=== PATIENT | female | born 1970 | race Caucasian/White ===

== ENCOUNTER 2021-06-23 17:27 | Outpatient (REF) | payer BC, SELFPAY ==
[2021-06-23 18:59] LABS: BUN 11 mg/dL (7-18); CREATININE 0.7 mg/dL (0.55-1.02); Chloride 106 mmol/L (98-107); Glucose 90 mg/dL (74-106); Potassium 3.8 mmol/L (3.5-5.1); Sodium 140 mmol/L (136-145)
== END 2021-06-23 17:28 | disposition home or self-care (01) ==
LOC: NCHCN 17:27
PROVIDERS: Visit Provider Nurse Practitioner Family
DX: I10 Essential (primary) hypertension (principal)
CPT/HCPCS: 80048

== ENCOUNTER 2022-07-07 14:48 | Outpatient (REF) | payer BC, SELFPAY ==
[2022-07-07 16:43] LABS: ALT 27 U/L (14-59); AST 29 U/L (15-37); Albumin 3.9 g/dL (3.4-5.0); Alkaline Phosphatase 53 U/L (46-116); Anion Gap 7.9 mmol/L (3-11); BUN 13 mg/dL (7-18); Bilirubin, Total 0.7 mg/dL (0.2-1.0); CO2 27.1 mmol/L (21.0-32.0); CREATININE 0.8 mg/dL (0.55-1.02); Calcium 8.7 mg/dL (8.5-10.1); Chloride 104 mmol/L (98-107); Glucose 91 mg/dL (74-106); Potassium 3.4 mmol/L (3.5-5.1); Sodium 139 mmol/L (136-145); Total Protein 7.9 g/dL (6.4-8.2)
[2022-07-07 16:46] LABS: Vitamin D 25 Total 9.9 ng/mL (30-100)
== END 2022-07-07 14:49 | disposition home or self-care (01) ==
LOC: NCHCN 14:48
PROVIDERS: Visit Provider Nurse Practitioner Family
DX: I10 Essential (primary) hypertension (principal); E55.9 Vitamin D deficiency, unspecified
CPT/HCPCS: 80053; 82306

== ENCOUNTER 2023-06-22 13:17 | Outpatient (REF) | payer BC, SELFPAY ==
[2023-06-22 18:57] LABS: Abs Immature Grans 0.02 10^3/uL (0.0-0.06); Absolute Basophil Count 0.07 10^3/uL (0.0-0.2); Absolute Eosinophil Count 0.24 10^3/uL (0.0-0.7); Absolute Lymphocyte Count 1.62 10^3/uL (1.2-3.4); Absolute Monocyte Count 0.81 10^3/uL (0.1-0.8); Absolute Neutrophil Count 5.61 10^3/uL (1.2-6.7); Basophils % 0.8; Eosinophils % 2.9; HGB 15.2 g/dL (11.2-15.7); Immature Grans % 0.2; Lymphocytes % 19.4; MCH 25.2 pg (27.0-33.0); MCHC 32.3 % (32.0-36.0); MCV 78 fL (80-95); MPV 11.8 fL (8.0-11.0); Monocytes % 9.7; Platelet Count 305 10^3/uL (130-400); RBC 6.04 10^6/uL (3.93-5.22); RDW 19.5 % (11.7-14.6); RDW-SD 52.1 fL; WBC 8.37 10^3/uL (4.4-10.8)
[2023-06-22 19:05] LABS: Anion Gap 8.7 mmol/L (3-11); BUN 15 mg/dL (7-18); CO2 27.3 mmol/L (21.0-32.0); CREATININE 0.7 mg/dL (0.55-1.02); Calcium 9.6 mg/dL (8.5-10.1); Calculated LDL 93 mg/dL (<100); Chloride 101 mmol/L (98-107); Cholesterol 168 mg/dL (<200); Estimated GFR 103.35 (mL/min/1.73m2); Glucose 127 mg/dL (74-106); HDL Cholesterol 58 mg/dL (40-60); Sodium 137 mmol/L (136-145); Triglyceride 89 mg/dL (<150)
[2023-06-22 19:28] LABS: Potassium 2.9 mmol/L (3.5-5.1)
[2023-06-22 20:38] LABS: Acanthocytes 1+; Diff Comment RBC Morph Reviewed; Microcytosis 1+
== END 2023-06-22 13:18 | disposition home or self-care (01) ==
LOC: NCHCN 13:17
PROVIDERS: Visit Provider Nurse Practitioner Family
DX: Z00.00 Encounter for general adult medical examination without abnormal findings (principal); I10 Essential (primary) hypertension; E55.9 Vitamin D deficiency, unspecified
CPT/HCPCS: 80048; 80061; 85025

== ENCOUNTER 2023-12-27 06:39 | Emergency (ER) | payer BC, SELFPAY ==
[2023-12-27] VITALS (30 sets, daily range): BP systolic 83–211; BP diastolic 61–104; PULSE 71–115; RESP 8–26; TEMP 37.1; O2SAT 98
[2023-12-27 06:59] LABS: Lactate 1.2 mmol/L (0.6-1.4)
[2023-12-27 07:02] LABS: Abs Immature Grans 0.03 10^3/uL (0.0-0.06); Absolute Basophil Count 0.05 10^3/uL (0.0-0.2); Absolute Eosinophil Count 0.15 10^3/uL (0.0-0.7); Absolute Monocyte Count 0.55 10^3/uL (0.1-0.8); Absolute Neutrophil Count 5.03 10^3/uL (1.2-6.7); Basophils % 0.7; HCT 43.6 % (36.0-46.0); HGB 14.9 g/dL (11.2-15.7); Immature Grans % 0.4; Lymphocytes % 21.6; MCH 29.5 pg (27.0-33.0); MCHC 34.2 % (32.0-36.0); MCV 86 fL (80-95); MPV 10.9 fL (8.0-11.0); Monocytes % 7.4; Neutrophils % 67.9; Platelet Count 289 10^3/uL (130-400); RBC 5.05 10^6/uL (3.93-5.22); RDW 14.3 % (11.7-14.6); RDW-SD 45.4 fL; WBC 7.41 10^3/uL (4.4-10.8)
[2023-12-27 07:16] LABS: PTT Activated 25.9 sec (23.6-32.8); Prothrombin Time 10.1 sec (9.1-11.1)
[2023-12-27 07:22] LABS: ALT 27 U/L (14-59); AST 16 U/L (15-37); Albumin 3.7 g/dL (3.4-5.0); Alkaline Phosphatase 69 U/L (46-116); Anion Gap 11.5 mmol/L (3-11); BUN 12 mg/dL (7-18); Bilirubin, Total 0.7 mg/dL (0.2-1.0); CO2 29.5 mmol/L (21.0-32.0); CREATININE 0.8 mg/dL (0.55-1.02); Calcium 8.9 mg/dL (8.5-10.1); Chloride 104 mmol/L (98-107); Estimated GFR 88.05 (mL/min/1.73m2); Glucose 107 mg/dL (74-106); HCG Quant, Pregnancy 1 mIU/mL (1-3); Sodium 145 mmol/L (136-145); Total Protein 7.6 g/dL (6.4-8.2)
--- NOTE | 2023-12-27 07:23 | ED.GENADUL_ITS ---
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 This is concerning for cancer. Please follow-up at 9 AM at your scheduled appointment with obstetrics gynecology for further discussion and management. Please drink plenty fluids and stay well-hydrated. Take an iron supplement to help keep your blood at an acceptable level. You can take 600 mg of Motrin every 6-8 hours as needed for pain or cramping. If you notice any worsening of your symptoms, or any new symptoms such as vomiting, diarrhea, fever, chills, shortness of breath, chest pain, numbness, weakness, or fainting , please return immediately to the emergency department for reevaluation. Please follow up with your primary care provider as soon as possible for reassessment and reevaluation. As always, it was a pleasure participating in your medical care today. Referrals: Jaycee Santos MD [ [facility] STAFF PHYSICIAN] - [facility] General Date/Time Provider Initiated Documentation: 12/27/23 06:44 . [facility] Narrative: 53-year-old female with a past medical history of hypertension, a G1, P0, family history of cervical cancer who used control years ago, but otherwise does not use any estrogen supplements, presents today for vaginal bleeding. Patient states that she thought she underwent menopause 2 years ago when she had her last menstrual cycle, however 5 days ago she began bleeding vaginally again. She is going through about 4 pads per day. Bleeding is somew hat heavy, but isolates. She has not taken any Tylenol or Motrin. She denies any vaginal trauma. Last episode of intercourse was 2 years ago. She denies chest pain or shortness of breath. She does admit to some mild pelvic cramping. She denies any blood thinner use. She does not take aspirin. No other complaints at this time. 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 3.ENT: Atraumatic external nose and ears. Moist MM. Neck: Symmetric, trachea midline, No thyromegaly. 4.CVS: +S1/S2, No murmurs or gallops. Peripheral pulses 2+ and equal in all extremities. Brisk capillary refill in all extremities. 5.RESP: Unlabored respiratory effort. Clear to auscultation bilaterally. No wheezes rales or rhonchi 6.GI: Soft, Nontender/Nondistended, No hepatosplenomegaly. No guarding or rebound. Minimal cramping on deep palpation in the lower pelvic region 7.MSK: Normocephalic/Atraumatic, Extremities w/o deformity or ttp No cyanosis or clubbing, Normal movement of all extremities 8.Skin: Warm, Dry. No rashes or lesions. 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 Sensation grossly intact, no focal neurologic deficits. 10.Psych: (AAO) x3. Appropriate mood and affect Course Vital Signs Vital signs: Vital Signs Temperature 37.1 C 12/27/23 06:44 Pulse 115 H 12/27/23 06:44 Respiratory Rate 18 12/27/23 06:44 Blood Pressure 211/104 H 12/27/23 06:44 Pulse Oximetry 98 12/27/23 06:44 Temperature 37.1 C 12/27/23 06:44 Temperature Source Temporal Artery Scan 12/27/23 06:44 Pulse 115 H 12/27/23 06:44 Respiratory Rate 18 12/27/23 06:44 Blood Pressure 146/97 H 12/27/23 06:52 Pulse Oximetry 98 12/27/23 06:44 Oxygen Delivery Method Room Air 12/27/23 06:44 Oxygen Flow Rate 0 12/27/23 06:44 Pain Level 0 12/27/23 06:52 Comment cramping on left side and back 12/27/23 06:44 Lab/Test Results Lab/Test Results: Laboratory Tests Range/Units 12/27/23 06:50 WBC (4.4-10.8) 10^3/uL 7.41 RBC (3.93-5.22) 10^6/uL 5.05 Hgb (11.2-15.7) g/dL 14.9 Hct (36.0-46.0) % 43.6 MCV (80-95) fL 86 MCH (27.0-33.0) pg 29.5 MCHC (32.0-36.0) % 34.2 RDW (11.7-14.6) % 14.3 Plt Count (130-400) 10^3/uL 289 MPV (8.0-11.0) fL 10.9 Immature Gran % 0.4 Neutrophils % 67.9 Lymphocytes % 21.6 Monocytes % 7.4 Eosinophils % 2.0 Basophils % 0.7 Nucleated RBC % (0.0-0.3) % 0.0 Absolute Neutrophils (1.2-6.7) 10^3/uL 5.03 Absolute Lymphocytes (1.2-3.4) 10^3/uL 1.60 Absolute Monocytes (0.1-0.8) 10^3/uL 0.55 Absolute Eosinophils (0.0-0.7) 10^3/uL 0.15 Absolute Basophils (0.0-0.2) 10^3/uL 0.05 PT (9.1-11.1) sec 10.1 INR (0.9-1.1) 1.0 APTT (23.6-32.8) sec 25.9 VBG Lactate (0.6-1.4) mmol/L 1.2 Medical Decision Making 53-year-old female with a past medical history of hypertension, a G1, P0, family history of cervical cancer who used control years ago, but otherwise does not use any estrogen supplements, presents today for vaginal bleeding. Patient states that she thought she underwent menopause 2 years ago when she had her last menstrual cycle, however 5 days ago she began bleeding vaginally again. She is going through about 4 pads per day. Bleeding is somewhat heavy, but isolates. She has not taken any Tylenol or Motrin. She denies any vaginal trauma. Last episode of intercourse was 2 years ago. She denies chest pain or shortness of breath. She does admit to some mild pelvic cramping. She denies any blood thinner use. She does not take aspirin. No other complaints at this time. Exam demonstrates a well-appearing female, mild hypertension, mild tachycardia, no hypotension. Mild pelvic achiness. Patient has refused vaginal exam. I did discuss with her the importance of this, including evaluating for potential lesions or atypical anatomy. She states she understands and would prefer to hold off, at least until the ultrasound is done. Do feel that this is less ideal but reasonable. Will evaluate for bleeding abnormality, will check her hemoglobin levels, type and screen, had an ultrasound of her pelvis, monitor closely and reassess. 7:43 AM Laboratory workup shows normal hemoglobin normal platelets. Hemoglobin is 14.9 at this time. Potassium is low at 2.8, she does take regular potassium supplements. We will check a magnesium level, and give 40 of oral potassium and 20 of IV potassium. Beta-hCG level is 1. 9:53 AM Patient's ultrasound has returned, she has an enlarged uterine fibroid, heterogenous thickening of the endometrial stripe at 2.8 cm, as well as potential endometrial mass, and large left ovarian septated cystic lesion. Concern for endometrial and ovarian cancer. Reached out to obstetrics gynecology and discussed the case with Dr. Gonzales, she recommends close follow-up with an appointment at 9 AM on Sunday morning. Patient feels stable. She feels well, cramping is resolved. Potassium has been corrected with 40 of oral potassium and 20 of IV potassium. She has potassium supplements at home. Hemoglobin is otherwise stable, platelets are stable. Patient feels comfortable going home with close follow-up. Patient will be discharged home. I did have a long sitdown discussion with the patient and her discussed the case the findings and potential next steps. She understands. Appointment time is been set up. Discussed red flags which to return. I have extensively reviewed the treatment plan and discharge instructions with the patient and their family. I have addressed all patient concerns at this time. The patient and family was ma de aware of what symptoms to monitor for that would warrant a return to the emergency department. Discussed the plan with the patient and family, they demonstrate verbal understanding and agreement with our assessment and plan at this time. The documentation in this chart was dictated using [employer] dictation software. Please excuse any dictation errors. Symptoms at this time appear to be clinically inconsistent with ovarian torsion, tubo-ovarian abscess. FINDINGS: UTERUS: The uterus is enlarged and heterogeneous with multiple myometrial masses some of which are calcified and likely reflect uterine fibroids. Position: Anteverted. Size: 14.7 long by 8.7 AP by 8.0 transverse cm Endometrium: 2.8 cm. The endometrium is heterogeneous with multiple areas of decreased echogenicity which have a masslike quality. Discrete areas in the endometrium measuring 2.7 cm and 1.9 cm were identified. Increased vascularity is present. Myometrium: Numerous myometrial masses consistent with fibroids. The largest measures 5.5 x 4.0 x 3.5 cm. Cervix: Unremarkable. OVARIES: Right: 2.0 x 0.9 x 1.9 cm Cyst or mass: No suspicious cystic or solid masses. Left: 3.6 x 4.3 x 3.5 cm Cyst or mass: There is a 3.6 x 4.2 x 2.3 cm cystic lesion in the left ovary with thick septations. DOPPLER: Color: Symmetric and uniform flow to both ovaries. CUL-DE-SAC: Free fluid: There is a small amount of free fluid in the cul-de-sac. Other: None. IMPRESSION: 1. Enlarged fibroid uterus. 2. Heterogeneous thickened endometrial stripe at 2.8 cm. Discrete areas in the endometrium measuring 2.7 cm and 1.9 cm were identified. These may represent endometrial masses. 3. 3.6 x 4.2 x 2.3 cm septated left ovarian cystic lesion. 4. Outpatient MRI of the pelvis with and without contrast is recommended for further evaluation. Quality:SDOH Health Related Social Needs: No Data to Display PFSH All Active Problems (Updated 12/27/23 @ 10:12 by Saeed Putnam DO) Acute hypokalemia (Acute) Mass of left ovary (Acute) Vaginal bleeding (Acute) Thickened endometrium (Acute) Social History Smoking/Tobacco Use Status: Never Smoking risk assessment performed?: Yes Alcohol Intake: current Substance use type: does not use
[2023-12-27 07:24] LABS: Potassium 2.8 mmol/L (3.5-5.1)
[2023-12-27] MEDS: Ketorolac 15 MG/ML VIAL IVP (07:24)
[2023-12-27] MEDS: Potassium Chloride 20 MEQ TABCR 40 MEQ PO (07:37)
[2023-12-27] MEDS: POTASSIUM CHLORIDE 20 MEQ/100 ML BAG 50 MEQ IVINF (07:42)
[2023-12-27 07:46] LABS: Magnesium 2.1 mg/dL (1.8-2.4)
[2023-12-27] MEDS: Normal Saline 1,000 ML 1000 ML IV (07:52)
--- NOTE | 2023-12-27 09:25 | DI.US_ITS ---
Exam(s) US PELVIS TRANSVAGINAL EXAM: US PELVIS TRANSVAGINAL CLINICAL HISTORY: vaginal bleeding, eval for uterine abnormality. TECHNIQUE: Transabdominal and transvaginal pelvic ultrasound was performed using standard protocol. COMPARISON: No exams were available for comparison FINDINGS: UTERUS: The uterus is enlarged and heterogeneous with multiple myometrial masses some of which are ca lcified and likely reflect uterine fibroids. Position: Anteverted. Size: 14.7 long by 8.7 AP by 8.0 transverse cm Endometrium: 2.8 cm. The endometrium is heterogeneous with multiple areas of decreased echogenicity w hich have a masslike quality. Discrete areas in the endometrium measuring 2.7 cm and 1.9 cm were [place] ntified. Increased vascularity is present. Myometrium: Numerous myometrial masses consistent with fibroids. The largest measures 5.5 x 4.0 x 3. 5 cm. Cervix: Unremarkable. OVARIES: Right: 2.0 x 0.9 x 1.9 cm Cyst or mass: No suspicious cystic or solid masses. Left: 3.6 x 4.3 x 3.5 cm Cyst or mass: There is a 3.6 x 4.2 x 2.3 cm cystic lesion in the left ovary with thick septations. DOPPLER: Color: Symmetric and uniform flow to both ovaries. CUL-DE-SAC: Free fluid: There is a small amount of free fluid in the cul-de-sac. Other: None. IMPRESSION: 1. Enlarged fibroid uterus. 2. Heterogeneous thickened endometrial stripe at 2.8 cm. Discrete areas in the endometrium measuring 2.7 cm and 1.9 cm were identified. These may represent endometrial masses. 3. 3.6 x 4.2 x 2.3 cm septated left ovarian cystic lesion. 4. Outpatient MRI of the pelvis with and without contrast is recommended for further evaluation. Unexpected findings DATA REPOSITORY:
== END 2023-12-27 11:03 | disposition home or self-care (01) ==
PROVIDERS: Student in an Organized Health Care Education/Training Program; Emergency Provider Student in an Organized Health Care Education/Training Program; PCP Nurse Practitioner Family
DX: R93.89 Abnormal findings on diagnostic imaging of other specified body structures (principal); N83.202 Unspecified ovarian cyst, left side; E87.6 Hypokalemia
CPT/HCPCS: 80053; 86850; 86900; 86901; 96365; 96366; 96375; 99284; 76830; 76856; 83605; 83735; 84702; 85025; 85610; 85730; J1885; J3480

== ENCOUNTER 2023-12-31 11:43 | Outpatient (CLI) | payer BC, SELFPAY ==
[2023-12-31 10:45] LABS: Abs Immature Grans 0.02 10^3/uL (0.0-0.06); Absolute Basophil Count 0.04 10^3/uL (0.0-0.2); Absolute Eosinophil Count 0.07 10^3/uL (0.0-0.7); Absolute Lymphocyte Count 1.36 10^3/uL (1.2-3.4); Absolute Monocyte Count 0.42 10^3/uL (0.1-0.8); Absolute Neutrophil Count 7.19 10^3/uL (1.2-6.7); Basophils % 0.4; Eosinophils % 0.8; HCT 39.4 % (36.0-46.0); HGB 13.5 g/dL (11.2-15.7); Immature Grans % 0.2; Lymphocytes % 14.9; MCH 29.5 pg (27.0-33.0); MCHC 34.3 % (32.0-36.0); MCV 86 fL (80-95); MPV 11.1 fL (8.0-11.0); Monocytes % 4.6; Neutrophils % 79.1; Platelet Count 320 10^3/uL (130-400); RBC 4.57 10^6/uL (3.93-5.22); RDW 14.4 % (11.7-14.6); RDW-SD 45.6 fL
[2023-12-31 17:27] LABS: Estradiol 33 pg/mL (See Note)
[2023-12-31 17:31] LABS: CEA 0.8 ng/mL (See Note)
[2023-12-31 18:03] LABS: CA 125 25 U/mL (<30)
[2023-12-31 18:37] LABS: CA 19-9 13 U/mL (<35)
== END 2023-12-31 11:44 | disposition home or self-care (01) ==
LOC: LBO 11:43
PROVIDERS: PCP Nurse Practitioner Family; Visit Provider Obstetrics & Gynecology
DX: N83.8 Other noninflammatory disorders of ovary, fallopian tube and broad ligament (principal); R93.89 Abnormal findings on diagnostic imaging of other specified body structures
CPT/HCPCS: 36415; 86304; 82378; 82670; 85025; 86301

== ENCOUNTER 2023-12-31 11:55 | Outpatient (REF) | payer BC, SELFPAY ==
--- NOTE | 2023-12-31 10:30 | ENDOMET_PTH ---
PATIENT: Vanessa Chilel LOC: [facility] U#:[id number] AGE/SX: 53/F ROOM: RE12/31/[address]: Jaycee Santos MD : 1970 BED: DIS: 12/31/2023 SPEC #: [id number] RECD: 12/31/23 12:47 STATUS: GIDEON REQ #: [id number] JOSE: 12/31/23 10:[address]: Jaycee Santos DEPT: Surgical Specimen RECD BY: Liza Hampton ENTERED: 12/31/23 12:47 SP TYPE: Endomet OTHR DR: Renetta Ba Tissues: 1 - ENDOMETRIUM BX/HELENETTE Procedures: GROSS AND MICRO LEVEL 4 Comments: [id number]
== END 2023-12-31 11:56 | disposition home or self-care (01) ==
LOC: LBN 11:55
PROVIDERS: PCP Nurse Practitioner Family; Visit Provider Obstetrics & Gynecology
DX: R93.89 Abnormal findings on diagnostic imaging of other specified body structures; D26.0 Other benign neoplasm of cervix uteri
CPT/HCPCS: 88305

== ENCOUNTER 2024-01-09 12:00 | Outpatient (REF) | payer BC, SELFPAY ==
--- NOTE | 2024-01-09 09:30 | ENDOMET_PTH ---
PATIENT: Vanessa Chilel LOC: [facility] U#:[id number] AGE/SX: 53/F ROOM: RE01/09/[address]: Jaycee Santos MD : 1970 BED: DIS: 01/09/2024 SPEC #: [id number] RECD: 01/09/24 12:54 STATUS: GIDEON REQ #: [id number] JOSE: 01/09/24 09:[address]: Jaycee Santos DEPT: Surgical Specimen RECD BY: Liza Hampton ENTERED: 01/09/24 12:54 SP TYPE: Endomet OTHR DR: Renetta Ba Tissues: 1 - ENDOMETRIUM BX/HELENETTE Procedures: GROSS AND MICRO LEVEL 4 Comments: [id number]
== END 2024-01-09 12:01 | disposition home or self-care (01) ==
LOC: LBN 12:00
PROVIDERS: PCP Nurse Practitioner Family; Visit Provider Obstetrics & Gynecology
DX: D26.0 Other benign neoplasm of cervix uteri (principal); N72 Inflammatory disease of cervix uteri; N85.8 Other specified noninflammatory disorders of uterus; N93.9 Abnormal uterine and vaginal bleeding, unspecified; R93.89 Abnormal findings on diagnostic imaging of other specified body structures
CPT/HCPCS: 88305